=== PATIENT | male | born 1945 | race Caucasian/White ===

== ENCOUNTER → 2023-06-19 09:45 | Outpatient (REF) | payer MEDICARE, OTHER, SELFPAY ==
[2023-06-19 11:08] LABS: % Basophils 1.3 % (0-2); % Eosinophils 2.2 % (0-6); % Immature Granulocytes 0.3 % (0-0.5); % Lymphocytes 18.2 % (20.5-51.1); % Monocytes 11.7 % (1.7-9.3); % Neutrophils 66.3 % (42.2-75.2); Absolute Basophils 0.1 10^3/uL (0-0.2); Absolute Eosinophils 0.2 10^3/uL (0-0.7); Absolute Lymphocytes 1.3 10^3/uL (1.2-3.4); Absolute Monocytes 0.8 10^3/uL (0.1-0.6); Absolute Neutrophils 4.7 10^3/uL (1.4-6.5); Hematocrit 39.7 % (39.0-52.0); Hemoglobin 13.1 g/dL (13.0-18.0); Mean Corpuscular Hgb 27.2 pg (27.0-31.0); Mean Corpuscular Volume 82.5 fL (80.0-94.0); Mean Platelet Volume 11.3 fL (7.4-10.4); Nucleated Red Blood Cells % 0 % (-); Platelet Count 169 10^3/uL (130-400); Red Blood Cell Count 4.81 10^6/uL (4.70-6.10); Red Cell Dist. Width 13.9 % (11.5-14.5); White Blood Cell Count 7.2 10^3/uL (4.8-10.8)
[2023-06-19 11:49] LABS: ALT (SGPT) 27 U/L (0-50); AST (SGOT) 23 U/L (17-59); Albumin 4.1 g/dl (3.5-5.0); Alkaline Phosphatase 89 U/L (38-126); Blood Urea Nitrogen 19 mg/dl (9-20); Calcium 9.3 mg/dl (8.4-10.2); Carbon Dioxide 28 mmol/L (22-30); Chloride 102 mmol/L (98-107); Glucose 99 mg/dl (70-99); Potassium 4.6 mmol/L (3.5-5.1); Sodium 139 mmol/L (135-145); Total Bilirubin 0.9 mg/dl (0.2-1.3); Total Protein 6.3 g/dl (6.3-8.2); eGFR > 60.00
[2023-06-19 12:27] LABS: TSH Reflex To Free T4 1.88 uIU/ml (0.47-4.68)
== END ==
LOC: REG 09:45
PROVIDERS: ATTENDING PHYSICIAN Internal Medicine Hematology & Oncology
DX: C34.31 Malignant neoplasm of lower lobe, right bronchus or lung (principal); C79.51 Secondary malignant neoplasm of bone; C79.31 Secondary malignant neoplasm of brain; R71.8 Other abnormality of red blood cells; R53.82 Chronic fatigue, unspecified
CPT/HCPCS: 36415; 80053; 84443; 85025

== ENCOUNTER → 2023-06-23 07:09 | Outpatient (REF) | payer MEDICARE, OTHER, SELFPAY | LOC: RAD 07:09 | PROVIDERS: ATTENDING PHYSICIAN Specialist; FAMILY PHYSICIAN Family Medicine | DX: I73.9 Peripheral vascular disease, unspecified (principal); I77.9 Disorder of arteries and arterioles, unspecified | CPT/HCPCS: 93922; 93925 ==

== ENCOUNTER → 2023-07-24 09:47 | Outpatient (REF) | payer MEDICARE, OTHER, SELFPAY | LOC: MRI 3T 09:47 | PROVIDERS: ATTENDING PHYSICIAN Radiology Radiation Oncology; FAMILY PHYSICIAN Family Medicine | DX: C34.90 Malignant neoplasm of unspecified part of unspecified bronchus or lung (principal); C79.31 Secondary malignant neoplasm of brain | CPT/HCPCS: 70553; A9575 ==

== ENCOUNTER → 2023-07-31 09:24 | Outpatient (REF) | payer MEDICARE, OTHER, SELFPAY ==
[2023-07-31 10:07] LABS: % Basophils 0.7 % (0-2); % Eosinophils 1.8 % (0-6); % Immature Granulocytes 0.4 % (0-0.5); % Lymphocytes 18.1 % (20.5-51.1); % Monocytes 9.8 % (1.7-9.3); % Neutrophils 69.2 % (42.2-75.2); Absolute Basophils 0.1 10^3/uL (0-0.2); Absolute Eosinophils 0.1 10^3/uL (0-0.7); Absolute Lymphocytes 1.3 10^3/uL (1.2-3.4); Absolute Monocytes 0.7 10^3/uL (0.1-0.6); Hematocrit 37.7 % (39.0-52.0); Hemoglobin 11.8 g/dL (13.0-18.0); Mean Corp Hgb Conc. 31.3 g/dL (33.0-37.0); Mean Corpuscular Hgb 26.1 pg (27.0-31.0); Mean Corpuscular Volume 83.4 fL (80.0-94.0); Mean Platelet Volume 10.2 fL (7.4-10.4); Nucleated Red Blood Cells % 0 % (-); Platelet Count 184 10^3/uL (130-400); Red Blood Cell Count 4.52 10^6/uL (4.70-6.10); Red Cell Dist. Width 13.2 % (11.5-14.5); White Blood Cell Count 7.2 10^3/uL (4.8-10.8)
[2023-07-31 10:39] LABS: ALT (SGPT) 13 U/L (0-50); AST (SGOT) 16 U/L (17-59); Albumin 3.3 g/dl (3.5-5.0); Alkaline Phosphatase 101 U/L (38-126); Blood Urea Nitrogen 15 mg/dl (9-20); Calcium 9.3 mg/dl (8.4-10.2); Carbon Dioxide 28 mmol/L (22-30); Chloride 104 mmol/L (98-107); Glucose 126 mg/dl (70-99); Potassium 4.4 mmol/L (3.5-5.1); Sodium 136 mmol/L (135-145); Total Bilirubin 0.4 mg/dl (0.2-1.3); Total Protein 5.8 g/dl (6.3-8.2); eGFR > 60.00
[2023-07-31 11:09] LABS: TSH Reflex To Free T4 2.37 uIU/ml (0.47-4.68)
== END ==
LOC: REG 09:24
PROVIDERS: ATTENDING PHYSICIAN Internal Medicine Hematology & Oncology
DX: C34.31 Malignant neoplasm of lower lobe, right bronchus or lung (principal); C79.51 Secondary malignant neoplasm of bone; C79.31 Secondary malignant neoplasm of brain; R71.8 Other abnormality of red blood cells; R53.82 Chronic fatigue, unspecified
CPT/HCPCS: 36415; 80053; 84443; 85025

== ENCOUNTER → 2023-09-04 09:59 | Outpatient (REF) | payer MEDICARE, OTHER, SELFPAY | LOC: RCS 09:59 | PROVIDERS: ATTENDING PHYSICIAN Pain Medicine Interventional Pain Medicine; FAMILY PHYSICIAN Family Medicine | DX: Z01.818 Encounter for other preprocedural examination (principal) | CPT/HCPCS: 93005 ==

== ENCOUNTER → 2023-09-12 09:45 | Outpatient (REF) | payer MEDICARE, OTHER, SELFPAY ==
[2023-09-12 12:26] LABS: % Basophils 0.8 % (0-2); % Eosinophils 1.9 % (0-6); % Immature Granulocytes 0.8 % (0-0.5); % Lymphocytes 16.8 % (20.5-51.1); % Monocytes 12.1 % (1.7-9.3); % Neutrophils 67.6 % (42.2-75.2); Absolute Basophils 0.1 10^3/uL (0-0.2); Absolute Eosinophils 0.2 10^3/uL (0-0.7); Absolute Immature Granulocytes 0.1 10^3/uL (0-0.05); Absolute Lymphocytes 1.3 10^3/uL (1.2-3.4); Absolute Neutrophils 5.3 10^3/uL (1.4-6.5); Hematocrit 36.8 % (39.0-52.0); Hemoglobin 11.5 g/dL (13.0-18.0); Mean Corp Hgb Conc. 31.3 g/dL (33.0-37.0); Mean Corpuscular Hgb 25.5 pg (27.0-31.0); Mean Corpuscular Volume 81.6 fL (80.0-94.0); Mean Platelet Volume 11.2 fL (7.4-10.4); Nucleated Red Blood Cells % 0 % (-); Platelet Count 193 10^3/uL (130-400); Red Blood Cell Count 4.51 10^6/uL (4.70-6.10); Red Cell Dist. Width 13.8 % (11.5-14.5); White Blood Cell Count 7.9 10^3/uL (4.8-10.8)
[2023-09-12 13:38] LABS: ALT (SGPT) 58 U/L (0-50); AST (SGOT) 30 U/L (17-59); Albumin 3.8 g/dl (3.5-5.0); Alkaline Phosphatase 125 U/L (38-126); Blood Urea Nitrogen 16 mg/dl (9-20); Calcium 9.6 mg/dl (8.4-10.2); Carbon Dioxide 27 mmol/L (22-30); Chloride 104 mmol/L (98-107); Glucose 81 mg/dl (70-99); Potassium 4.5 mmol/L (3.5-5.1); Sodium 140 mmol/L (135-145); Total Bilirubin 0.5 mg/dl (0.2-1.3); Total Protein 6.4 g/dl (6.3-8.2); eGFR > 60.00
[2023-09-12 14:09] LABS: TSH Reflex To Free T4 1.86 uIU/ml (0.47-4.68)
== END ==
LOC: REG 09:45
PROVIDERS: ATTENDING PHYSICIAN Internal Medicine Hematology & Oncology; FAMILY PHYSICIAN Family Medicine
DX: C34.31 Malignant neoplasm of lower lobe, right bronchus or lung (principal); C79.51 Secondary malignant neoplasm of bone; C79.31 Secondary malignant neoplasm of brain; R71.8 Other abnormality of red blood cells; R53.82 Chronic fatigue, unspecified
CPT/HCPCS: 36415; 80053; 84443; 85025

== ENCOUNTER → 2023-10-23 09:43 | Outpatient (REF) | payer MEDICARE, OTHER, SELFPAY ==
[2023-10-23 11:40] LABS: % Basophils 0.7 % (0-2); % Eosinophils 2.2 % (0-6); % Immature Granulocytes 0.4 % (0-0.5); % Lymphocytes 13.3 % (20.5-51.1); % Monocytes 13.5 % (1.7-9.3); % Neutrophils 69.9 % (42.2-75.2); Absolute Basophils 0.1 10^3/uL (0-0.2); Absolute Eosinophils 0.2 10^3/uL (0-0.7); Absolute Neutrophils 5.1 10^3/uL (1.4-6.5); Hematocrit 35.3 % (39.0-52.0); Hemoglobin 11.3 g/dL (13.0-18.0); Mean Corpuscular Hgb 25.3 pg (27.0-31.0); Mean Platelet Volume 10.7 fL (7.4-10.4); Nucleated Red Blood Cells % 0 % (-); Platelet Count 213 10^3/uL (130-400); Red Blood Cell Count 4.47 10^6/uL (4.70-6.10); Red Cell Dist. Width 14.2 % (11.5-14.5); White Blood Cell Count 7.4 10^3/uL (4.8-10.8)
[2023-10-23 12:04] LABS: ALT (SGPT) 28 U/L (0-50); AST (SGOT) 21 U/L (17-59); Albumin 3.6 g/dl (3.5-5.0); Alkaline Phosphatase 120 U/L (38-126); Blood Urea Nitrogen 17 mg/dl (9-20); Calcium 9.1 mg/dl (8.4-10.2); Carbon Dioxide 27 mmol/L (22-30); Chloride 103 mmol/L (98-107); Glucose 117 mg/dl (70-99); Potassium 4.5 mmol/L (3.5-5.1); Sodium 138 mmol/L (135-145); Total Bilirubin 0.5 mg/dl (0.2-1.3); eGFR > 60.00
[2023-10-23 12:35] LABS: TSH Reflex To Free T4 1.77 uIU/ml (0.47-4.68)
== END ==
LOC: REG 09:43
PROVIDERS: ATTENDING PHYSICIAN Internal Medicine Hematology & Oncology
DX: C34.31 Malignant neoplasm of lower lobe, right bronchus or lung (principal); C79.51 Secondary malignant neoplasm of bone; C79.31 Secondary malignant neoplasm of brain; R71.8 Other abnormality of red blood cells; R53.82 Chronic fatigue, unspecified
CPT/HCPCS: 36415; 80053; 84443; 85025

== ENCOUNTER → 2023-12-04 09:38 | Outpatient (REF) | payer MEDICARE, OTHER, SELFPAY ==
[2023-12-04 10:42] LABS: % Eosinophils 2.9 % (0-6); % Immature Granulocytes 0.6 % (0-0.5); % Lymphocytes 13.2 % (20.5-51.1); % Monocytes 13.1 % (1.7-9.3); % Neutrophils 69.2 % (42.2-75.2); Absolute Basophils 0.1 10^3/uL (0-0.2); Absolute Eosinophils 0.3 10^3/uL (0-0.7); Absolute Immature Granulocytes 0.1 10^3/uL (0-0.05); Absolute Lymphocytes 1.2 10^3/uL (1.2-3.4); Absolute Monocytes 1.2 10^3/uL (0.1-0.6); Absolute Neutrophils 6.2 10^3/uL (1.4-6.5); Hematocrit 35.7 % (39.0-52.0); Hemoglobin 11.7 g/dL (13.0-18.0); Mean Corp Hgb Conc. 32.8 g/dL (33.0-37.0); Mean Corpuscular Hgb 25.6 pg (27.0-31.0); Mean Corpuscular Volume 78.1 fL (80.0-94.0); Mean Platelet Volume 10.4 fL (7.4-10.4); Nucleated Red Blood Cells % 0 % (-); Platelet Count 208 10^3/uL (130-400); Red Blood Cell Count 4.57 10^6/uL (4.70-6.10); White Blood Cell Count 8.9 10^3/uL (4.8-10.8)
[2023-12-04 11:32] LABS: ALT (SGPT) 28 U/L (0-50); AST (SGOT) 24 U/L (17-59); Albumin 3.7 g/dl (3.5-5.0); Alkaline Phosphatase 123 U/L (38-126); Blood Urea Nitrogen 18 mg/dl (9-20); Calcium 9.4 mg/dl (8.4-10.2); Carbon Dioxide 25 mmol/L (22-30); Chloride 101 mmol/L (98-107); Glucose 119 mg/dl (70-99); Potassium 4.3 mmol/L (3.5-5.1); Sodium 134 mmol/L (135-145); Total Bilirubin 0.5 mg/dl (0.2-1.3); eGFR > 60.00
[2023-12-04 11:39] LABS: TSH Reflex To Free T4 1.92 uIU/ml (0.47-4.68)
== END ==
LOC: REG 09:38
PROVIDERS: ATTENDING PHYSICIAN Internal Medicine Hematology & Oncology; FAMILY PHYSICIAN Family Medicine
DX: C34.31 Malignant neoplasm of lower lobe, right bronchus or lung (principal); C79.51 Secondary malignant neoplasm of bone; C79.31 Secondary malignant neoplasm of brain; R71.8 Other abnormality of red blood cells; R53.82 Chronic fatigue, unspecified
CPT/HCPCS: 36415; 80053; 84443; 85025

== ENCOUNTER → 2024-01-09 18:34 | Outpatient (REF) | payer MEDICARE, OTHER, SELFPAY | LOC: MRI 3T 18:34 | PROVIDERS: ATTENDING PHYSICIAN Internal Medicine Hematology & Oncology; FAMILY PHYSICIAN Family Medicine; REFERRING PHYSICIAN Pain Medicine Interventional Pain Medicine | DX: C34.31 Malignant neoplasm of lower lobe, right bronchus or lung (principal); C79.51 Secondary malignant neoplasm of bone; C79.31 Secondary malignant neoplasm of brain; R71.8 Other abnormality of red blood cells; R53.82 Chronic fatigue, unspecified | CPT/HCPCS: 72158; A9575 ==

== ENCOUNTER → 2024-01-12 08:52 | Outpatient (REF) | payer MEDICARE, OTHER, SELFPAY ==
[2024-01-12 09:20] LABS: % Basophils 0.5 % (0-2); % Eosinophils 2.1 % (0-6); % Immature Granulocytes 0.4 % (0-0.5); % Lymphocytes 18.2 % (20.5-51.1); % Monocytes 16.4 % (1.7-9.3); % Neutrophils 62.4 % (42.2-75.2); Absolute Eosinophils 0.1 10^3/uL (0-0.7); Absolute Monocytes 0.9 10^3/uL (0.1-0.6); Absolute Neutrophils 3.5 10^3/uL (1.4-6.5); Hemoglobin 10.5 g/dL (13.0-18.0); Mean Corp Hgb Conc. 31.8 g/dL (33.0-37.0); Mean Corpuscular Hgb 25.4 pg (27.0-31.0); Mean Corpuscular Volume 79.7 fL (80.0-94.0); Mean Platelet Volume 9.9 fL (7.4-10.4); Nucleated Red Blood Cells % 0 % (-); Platelet Count 223 10^3/uL (130-400); Red Blood Cell Count 4.14 10^6/uL (4.70-6.10); White Blood Cell Count 5.6 10^3/uL (4.8-10.8)
[2024-01-12 09:38] LABS: Erythrocyte Sed Rate 56 mm/hour (0-20)
[2024-01-12 09:51] LABS: ALT (SGPT) 35 U/L (0-50); AST (SGOT) 25 U/L (17-59); Albumin 3.6 g/dl (3.5-5.0); Alkaline Phosphatase 137 U/L (38-126); Blood Urea Nitrogen 16 mg/dl (9-20); Calcium 9.3 mg/dl (8.4-10.2); Carbon Dioxide 24 mmol/L (22-30); Chloride 102 mmol/L (98-107); Glucose 134 mg/dl (70-99); Potassium 3.9 mmol/L (3.5-5.1); Sodium 141 mmol/L (135-145); Total Bilirubin 0.5 mg/dl (0.2-1.3); Total Protein 6.1 g/dl (6.3-8.2); eGFR > 60.00
[2024-01-12 10:18] LABS: TSH Reflex To Free T4 1.68 uIU/ml (0.47-4.68)
== END ==
LOC: REG 08:52
PROVIDERS: ATTENDING PHYSICIAN Internal Medicine Hematology & Oncology; FAMILY PHYSICIAN Family Medicine; REFERRING PHYSICIAN Physician Assistant
DX: M25.50 Pain in unspecified joint (principal); M35.3 Polymyalgia rheumatica; M79.10 Myalgia, unspecified site; C34.31 Malignant neoplasm of lower lobe, right bronchus or lung; C79.51 Secondary malignant neoplasm of bone; C79.31 Secondary malignant neoplasm of brain; R71.8 Other abnormality of red blood cells; R53.82 Chronic fatigue, unspecified
CPT/HCPCS: 36415; 80053; 84443; 85025; 85652; 86140

== ENCOUNTER → 2024-01-30 08:48 | Outpatient (REF) | payer MEDICARE, OTHER, SELFPAY | LOC: MRI 3T 08:48 | PROVIDERS: ATTENDING PHYSICIAN Radiology Radiation Oncology; FAMILY PHYSICIAN Family Medicine | DX: C34.90 Malignant neoplasm of unspecified part of unspecified bronchus or lung (principal) | CPT/HCPCS: 70553 ==

== ENCOUNTER → 2024-02-26 09:37 | Outpatient (REF) | payer MEDICARE, OTHER, SELFPAY ==
[2024-02-26 10:12] LABS: % Basophils 0.4 % (0-2); % Eosinophils 0.7 % (0-6); % Immature Granulocytes 1.4 % (0-0.5); % Lymphocytes 14.9 % (20.5-51.1); % Monocytes 8.9 % (1.7-9.3); % Neutrophils 73.7 % (42.2-75.2); Absolute Eosinophils 0.1 10^3/uL (0-0.7); Absolute Immature Granulocytes 0.2 10^3/uL (0-0.05); Absolute Lymphocytes 1.6 10^3/uL (1.2-3.4); Absolute Neutrophils 7.9 10^3/uL (1.4-6.5); Hematocrit 41.5 % (39.0-52.0); Mean Corp Hgb Conc. 31.3 g/dL (33.0-37.0); Mean Corpuscular Hgb 26.1 pg (27.0-31.0); Mean Corpuscular Volume 83.3 fL (80.0-94.0); Mean Platelet Volume 10.3 fL (7.4-10.4); Nucleated Red Blood Cells % 0 % (-); Platelet Count 154 10^3/uL (130-400); Red Blood Cell Count 4.98 10^6/uL (4.70-6.10); Red Cell Dist. Width 17.2 % (11.5-14.5); White Blood Cell Count 10.8 10^3/uL (4.8-10.8)
[2024-02-26 10:47] LABS: ALT (SGPT) 65 U/L (0-50); AST (SGOT) 27 U/L (17-59); Albumin 3.7 g/dl (3.5-5.0); Alkaline Phosphatase 74 U/L (38-126); Blood Urea Nitrogen 20 mg/dl (9-20); Calcium 9.6 mg/dl (8.4-10.2); Carbon Dioxide 28 mmol/L (22-30); Chloride 103 mmol/L (98-107); Glucose 89 mg/dl (70-99); Potassium 4.3 mmol/L (3.5-5.1); Sodium 139 mmol/L (135-145); Total Bilirubin 0.6 mg/dl (0.2-1.3); eGFR > 60.00
[2024-02-26 11:06] LABS: TSH Reflex To Free T4 1.97 uIU/ml (0.47-4.68)
== END ==
LOC: REG 09:37
PROVIDERS: ATTENDING PHYSICIAN Internal Medicine Hematology & Oncology; FAMILY PHYSICIAN Family Medicine
DX: C34.31 Malignant neoplasm of lower lobe, right bronchus or lung (principal); C79.51 Secondary malignant neoplasm of bone; C79.31 Secondary malignant neoplasm of brain; R71.8 Other abnormality of red blood cells; R53.82 Chronic fatigue, unspecified
CPT/HCPCS: 36415; 80053; 84443; 85025

== ENCOUNTER → 2024-04-03 09:43 | Outpatient (REF) | payer MEDICARE, OTHER, SELFPAY ==
[2024-04-03 10:23] LABS: Erythrocyte Sed Rate 7 mm/hour (0-20)
[2024-04-03 10:44] LABS: C-Reactive Protein < 5.00 mg/L (0.0-10.00)
== END ==
LOC: REG 09:43
PROVIDERS: ATTENDING PHYSICIAN Internal Medicine Rheumatology; FAMILY PHYSICIAN Family Medicine
DX: M35.3 Polymyalgia rheumatica (principal)
CPT/HCPCS: 36415; 85652; 86140

== ENCOUNTER → 2024-04-23 09:45 | Outpatient (REF) | payer MEDICARE, OTHER, SELFPAY ==
[2024-04-23 11:29] LABS: % Basophils 0.7 % (0-2); % Eosinophils 1.2 % (0-6); % Immature Granulocytes 1.2 % (0-0.5); % Lymphocytes 17.7 % (20.5-51.1); % Monocytes 9.9 % (1.7-9.3); % Neutrophils 69.3 % (42.2-75.2); Absolute Basophils 0.1 10^3/uL (0-0.2); Absolute Eosinophils 0.1 10^3/uL (0-0.7); Absolute Immature Granulocytes 0.1 10^3/uL (0-0.05); Absolute Lymphocytes 1.8 10^3/uL (1.2-3.4); Absolute Neutrophils 7.2 10^3/uL (1.4-6.5); Hematocrit 43.7 % (39.0-52.0); Hemoglobin 14.3 g/dL (13.0-18.0); Mean Corp Hgb Conc. 32.7 g/dL (33.0-37.0); Mean Corpuscular Hgb 27.3 pg (27.0-31.0); Mean Corpuscular Volume 83.6 fL (80.0-94.0); Mean Platelet Volume 11.1 fL (7.4-10.4); Nucleated Red Blood Cells % 0 % (-); Platelet Count 154 10^3/uL (130-400); Red Blood Cell Count 5.23 10^6/uL (4.70-6.10); Red Cell Dist. Width 15.5 % (11.5-14.5); White Blood Cell Count 10.4 10^3/uL (4.8-10.8)
[2024-04-23 11:40] LABS: ALT (SGPT) 78 U/L (0-50); AST (SGOT) 28 U/L (17-59); Albumin 4.1 g/dl (3.5-5.0); Alkaline Phosphatase 83 U/L (38-126); Blood Urea Nitrogen 21 mg/dl (9-20); Calcium 9.2 mg/dl (8.4-10.2); Carbon Dioxide 31 mmol/L (22-30); Chloride 100 mmol/L (98-107); Glucose 81 mg/dl (70-99); Potassium 3.8 mmol/L (3.5-5.1); Sodium 139 mmol/L (135-145); Total Protein 6.3 g/dl (6.3-8.2); eGFR > 60.00
[2024-04-23 12:08] LABS: TSH Reflex To Free T4 2.34 uIU/ml (0.47-4.68)
== END ==
LOC: REG 09:45
PROVIDERS: ATTENDING PHYSICIAN Internal Medicine Hematology & Oncology; FAMILY PHYSICIAN Family Medicine
DX: C34.31 Malignant neoplasm of lower lobe, right bronchus or lung (principal); C79.51 Secondary malignant neoplasm of bone; C79.31 Secondary malignant neoplasm of brain; R71.8 Other abnormality of red blood cells; R53.82 Chronic fatigue, unspecified; M35.3 Polymyalgia rheumatica
CPT/HCPCS: 36415; 80053; 84443; 85025

== ENCOUNTER → 2024-05-13 07:30 | Outpatient (REF) | payer MEDICARE, OTHER, SELFPAY | LOC: MRI 3T 07:30 | PROVIDERS: ATTENDING PHYSICIAN Radiology Radiation Oncology; FAMILY PHYSICIAN Family Medicine; REFERRING PHYSICIAN Internal Medicine Hematology & Oncology | DX: C34.90 Malignant neoplasm of unspecified part of unspecified bronchus or lung (principal) | CPT/HCPCS: 70553; A9575 ==

== ENCOUNTER → 2024-05-20 10:05 | Outpatient (REF) | payer MEDICARE, OTHER, SELFPAY ==
[2024-05-20 10:30] VITALS: BP 151/73; BP_SYST 59
[2024-05-20] MEDS: ANCEF 10 IV (11:01)
[2024-05-20 11:55] VITALS: BP 135/58; BP_SYST 94
[2024-05-20 12:00] VITALS: BP 142/64; BP_SYST 87
== END ==
LOC: RADI 10:05
PROVIDERS: ATTENDING PHYSICIAN Internal Medicine Hematology & Oncology; FAMILY PHYSICIAN Family Medicine
DX: C34.31 Malignant neoplasm of lower lobe, right bronchus or lung (principal)
CPT/HCPCS: 36561; 76937; 77001; 99152; 99153; C1788

== ENCOUNTER → 2024-05-28 09:38 | Outpatient (REF) | payer MEDICARE, OTHER, SELFPAY ==
[2024-05-28 11:02] LABS: % Basophils 0.6 % (0-2); % Eosinophils 2.9 % (0-6); % Immature Granulocytes 1.1 % (0-0.5); % Lymphocytes 13.7 % (20.5-51.1); % Monocytes 10.7 % (1.7-9.3); Absolute Basophils 0.1 10^3/uL (0-0.2); Absolute Eosinophils 0.3 10^3/uL (0-0.7); Absolute Immature Granulocytes 0.1 10^3/uL (0-0.05); Absolute Lymphocytes 1.5 10^3/uL (1.2-3.4); Absolute Monocytes 1.2 10^3/uL (0.1-0.6); Absolute Neutrophils 7.9 10^3/uL (1.4-6.5); Hematocrit 41.7 % (39.0-52.0); Hemoglobin 13.5 g/dL (13.0-18.0); Mean Corp Hgb Conc. 32.4 g/dL (33.0-37.0); Mean Corpuscular Volume 86.5 fL (80.0-94.0); Mean Platelet Volume 10.7 fL (7.4-10.4); Nucleated Red Blood Cells % 0 % (-); Platelet Count 163 10^3/uL (130-400); Red Blood Cell Count 4.82 10^6/uL (4.70-6.10); Red Cell Dist. Width 14.1 % (11.5-14.5); White Blood Cell Count 11.1 10^3/uL (4.8-10.8)
[2024-05-28 11:56] LABS: ALT (SGPT) 100 U/L (0-50); AST (SGOT) 43 U/L (17-59); Albumin 3.7 g/dl (3.5-5.0); Alkaline Phosphatase 172 U/L (38-126); Blood Urea Nitrogen 24 mg/dl (9-20); Calcium 9.4 mg/dl (8.4-10.2); Carbon Dioxide 28 mmol/L (22-30); Chloride 102 mmol/L (98-107); Glucose 94 mg/dl (70-99); Potassium 4.5 mmol/L (3.5-5.1); Sodium 137 mmol/L (135-145); Total Protein 6.1 g/dl (6.3-8.2); eGFR > 60.00
[2024-05-28 12:16] LABS: TSH Reflex To Free T4 1.99 uIU/ml (0.47-4.68)
== END ==
LOC: REG 09:38
PROVIDERS: ATTENDING PHYSICIAN Internal Medicine Hematology & Oncology; FAMILY PHYSICIAN Family Medicine
DX: C34.31 Malignant neoplasm of lower lobe, right bronchus or lung (principal); C79.51 Secondary malignant neoplasm of bone; C79.31 Secondary malignant neoplasm of brain; R71.8 Other abnormality of red blood cells; R53.82 Chronic fatigue, unspecified; M35.3 Polymyalgia rheumatica
CPT/HCPCS: 36415; 80053; 84443; 85025

== ENCOUNTER → 2024-06-12 08:29 | Outpatient (REF) | payer MEDICARE, OTHER, SELFPAY ==
[2024-06-12 10:07] LABS: Erythrocyte Sed Rate 17 mm/hour (0-20)
== END ==
LOC: REG 08:29
PROVIDERS: ATTENDING PHYSICIAN Physician Assistant; FAMILY PHYSICIAN Family Medicine
DX: M35.3 Polymyalgia rheumatica (principal)
CPT/HCPCS: 36415; 85652; 86140

== ENCOUNTER → 2024-06-18 09:27 | Outpatient (REF) | payer MEDICARE, OTHER, SELFPAY ==
[2024-06-18 10:26] LABS: % Basophils 1.4 % (0-2); % Eosinophils 0.5 % (0-6); % Immature Granulocytes 2.1 % (0-0.5); % Lymphocytes 9.3 % (20.5-51.1); % Monocytes 8.6 % (1.7-9.3); % Neutrophils 78.1 % (42.2-75.2); Absolute Basophils 0.3 10^3/uL (0-0.2); Absolute Eosinophils 0.1 10^3/uL (0-0.7); Absolute Immature Granulocytes 0.4 10^3/uL (0-0.05); Absolute Lymphocytes 1.8 10^3/uL (1.2-3.4); Absolute Monocytes 1.7 10^3/uL (0.1-0.6); Absolute Neutrophils 15.4 10^3/uL (1.4-6.5); Hematocrit 40.2 % (39.0-52.0); Hemoglobin 13.3 g/dL (13.0-18.0); Mean Corp Hgb Conc. 33.1 g/dL (33.0-37.0); Mean Corpuscular Hgb 27.5 pg (27.0-31.0); Mean Corpuscular Volume 83.2 fL (80.0-94.0); Mean Platelet Volume 10.4 fL (7.4-10.4); Nucleated Red Blood Cells % 0 % (-); Platelet Count 241 10^3/uL (130-400); Red Blood Cell Count 4.83 10^6/uL (4.70-6.10); Red Cell Dist. Width 14.7 % (11.5-14.5); White Blood Cell Count 19.7 10^3/uL (4.8-10.8)
[2024-06-18 11:08] LABS: ALT (SGPT) 41 U/L (0-50); AST (SGOT) 22 U/L (17-59); Alkaline Phosphatase 213 U/L (38-126); Blood Urea Nitrogen 16 mg/dl (9-20); Calcium 9.7 mg/dl (8.4-10.2); Carbon Dioxide 31 mmol/L (22-30); Chloride 102 mmol/L (98-107); Glucose 86 mg/dl (70-99); Potassium 4.2 mmol/L (3.5-5.1); Sodium 140 mmol/L (135-145); Total Bilirubin 0.8 mg/dl (0.2-1.3); Total Protein 6.4 g/dl (6.3-8.2); eGFR > 60.00
[2024-06-18 11:35] LABS: TSH Reflex To Free T4 2.72 uIU/ml (0.47-4.68)
== END ==
LOC: REG 09:27
PROVIDERS: ATTENDING PHYSICIAN Internal Medicine Hematology & Oncology; FAMILY PHYSICIAN Family Medicine
DX: C34.31 Malignant neoplasm of lower lobe, right bronchus or lung (principal); C79.51 Secondary malignant neoplasm of bone; C79.31 Secondary malignant neoplasm of brain; R71.8 Other abnormality of red blood cells; R53.82 Chronic fatigue, unspecified; M35.3 Polymyalgia rheumatica
CPT/HCPCS: 36415; 80053; 84443; 85025

== ENCOUNTER → 2024-07-09 09:19 | Outpatient (REF) | payer MEDICARE, OTHER, SELFPAY ==
[2024-07-09 10:39] LABS: % Basophils 0.9 % (0-2); % Eosinophils 0.7 % (0-6); % Immature Granulocytes 1.9 % (0-0.5); % Monocytes 8.5 % (1.7-9.3); Absolute Basophils 0.1 10^3/uL (0-0.2); Absolute Eosinophils 0.1 10^3/uL (0-0.7); Absolute Immature Granulocytes 0.2 10^3/uL (0-0.05); Absolute Lymphocytes 1.5 10^3/uL (1.2-3.4); Absolute Neutrophils 8.5 10^3/uL (1.4-6.5); Hematocrit 37.1 % (39.0-52.0); Mean Corp Hgb Conc. 32.3 g/dL (33.0-37.0); Mean Corpuscular Hgb 27.8 pg (27.0-31.0); Mean Corpuscular Volume 85.9 fL (80.0-94.0); Mean Platelet Volume 11.2 fL (7.4-10.4); Nucleated Red Blood Cells % 0 % (-); Platelet Count 135 10^3/uL (130-400); Red Blood Cell Count 4.32 10^6/uL (4.70-6.10); Red Cell Dist. Width 15.8 % (11.5-14.5); White Blood Cell Count 11.3 10^3/uL (4.8-10.8)
[2024-07-09 10:47] LABS: ALT (SGPT) 33 U/L (0-50); AST (SGOT) 20 U/L (17-59); Albumin 3.9 g/dl (3.5-5.0); Alkaline Phosphatase 186 U/L (38-126); Blood Urea Nitrogen 17 mg/dl (9-20); Calcium 9.6 mg/dl (8.4-10.2); Carbon Dioxide 27 mmol/L (22-30); Chloride 108 mmol/L (98-107); Glucose 147 mg/dl (70-99); Potassium 3.8 mmol/L (3.5-5.1); Sodium 143 mmol/L (135-145); Total Bilirubin 0.5 mg/dl (0.2-1.3); eGFR > 60.00
== END ==
LOC: REG 09:19
PROVIDERS: ATTENDING PHYSICIAN Internal Medicine Hematology & Oncology; FAMILY PHYSICIAN Family Medicine
DX: C34.31 Malignant neoplasm of lower lobe, right bronchus or lung (principal); C79.51 Secondary malignant neoplasm of bone; C79.31 Secondary malignant neoplasm of brain; R71.8 Other abnormality of red blood cells; R53.82 Chronic fatigue, unspecified; M35.3 Polymyalgia rheumatica
CPT/HCPCS: 36415; 80053; 85025

== ENCOUNTER → 2024-07-20 08:24 | Outpatient (REF) | payer MEDICARE, OTHER, SELFPAY ==
[2024-07-20 09:24] LABS: Urine Albumin Negative (Neg - Trace); Urine Bilirubin Negative (Negative); Urine Character Clear (Clear); Urine Color Yellow; Urine Glucose Negative (Negative); Urine Ketone Negative (Negative); Urine Leukocyte 1+ (Negative); Urine Nitrite Negative (Negative); Urine Occult Blood Negative (Negative); Urine Urobilinogen Negative (Neg - 1+); Urine pH 6.5 (5.0-9.0)
[2024-07-20 09:25] LABS: Hemoglobin 11.4 g/dL (13.0-18.0); Mean Corp Hgb Conc. 32.6 g/dL (33.0-37.0); Mean Corpuscular Hgb 27.9 pg (27.0-31.0); Mean Corpuscular Volume 85.6 fL (80.0-94.0); Mean Platelet Volume 11.2 fL (7.4-10.4); Platelet Count 138 10^3/uL (130-400); Red Blood Cell Count 4.09 10^6/uL (4.70-6.10); Red Cell Dist. Width 15.2 % (11.5-14.5)
[2024-07-20 09:40] LABS: ALT (SGPT) 40 U/L (0-50); AST (SGOT) 24 U/L (17-59); Albumin 3.6 g/dl (3.5-5.0); Alkaline Phosphatase 207 U/L (38-126); Blood Urea Nitrogen 10 mg/dl (9-20); Calcium 9.4 mg/dl (8.4-10.2); Carbon Dioxide 28 mmol/L (22-30); Chloride 107 mmol/L (98-107); Glucose 119 mg/dl (70-99); Potassium 3.5 mmol/L (3.5-5.1); Sodium 141 mmol/L (135-145); Total Bilirubin 0.4 mg/dl (0.2-1.3); Total Protein 5.7 g/dl (6.3-8.2); eGFR > 60.00
[2024-07-20 10:45] LABS: Urine Bacteria Few (Negative)
[2024-07-20 13:54] LABS: % Basophils 0.5 % (0-2); % Eosinophils 1.6 % (0-6); % Immature Granulocytes 2.3 % (0-0.5); % Lymphocytes 17.6 % (20.5-51.1); % Monocytes 11.7 % (1.7-9.3); % Neutrophils 66.3 % (42.2-75.2); Absolute Basophils 0.1 10^3/uL (0-0.2); Absolute Eosinophils 0.2 10^3/uL (0-0.7); Absolute Immature Granulocytes 0.3 10^3/uL (0-0.05); Absolute Lymphocytes 1.9 10^3/uL (1.2-3.4); Absolute Monocytes 1.3 10^3/uL (0.1-0.6); Absolute Neutrophils 7.3 10^3/uL (1.4-6.5); Nucleated Red Blood Cells % 0 % (-)
== END ==
LOC: REG 08:24
PROVIDERS: ATTENDING PHYSICIAN Internal Medicine Hematology & Oncology; FAMILY PHYSICIAN Family Medicine
DX: C34.31 Malignant neoplasm of lower lobe, right bronchus or lung (principal); C79.51 Secondary malignant neoplasm of bone; R71.8 Other abnormality of red blood cells; R53.82 Chronic fatigue, unspecified; M35.3 Polymyalgia rheumatica; N39.0 Urinary tract infection, site not specified
CPT/HCPCS: 36415; 80053; 81003; 81015; 85025; 87086

== ENCOUNTER → 2024-07-30 07:55 | Outpatient (REF) | payer MEDICARE, OTHER, SELFPAY ==
[2024-07-30 08:59] LABS: % Basophils 1.3 % (0-2); % Eosinophils 0.7 % (0-6); % Immature Granulocytes 0.7 % (0-0.5); % Lymphocytes 17.5 % (20.5-51.1); % Monocytes 10.8 % (1.7-9.3); Absolute Basophils 0.1 10^3/uL (0-0.2); Absolute Eosinophils 0.1 10^3/uL (0-0.7); Absolute Immature Granulocytes 0.1 10^3/uL (0-0.05); Absolute Lymphocytes 1.5 10^3/uL (1.2-3.4); Absolute Monocytes 0.9 10^3/uL (0.1-0.6); Absolute Neutrophils 5.8 10^3/uL (1.4-6.5); Hematocrit 36.6 % (39.0-52.0); Hemoglobin 11.9 g/dL (13.0-18.0); Mean Corp Hgb Conc. 32.5 g/dL (33.0-37.0); Mean Corpuscular Hgb 28.1 pg (27.0-31.0); Mean Corpuscular Volume 86.3 fL (80.0-94.0); Mean Platelet Volume 10.5 fL (7.4-10.4); Nucleated Red Blood Cells % 0 % (-); Platelet Count 143 10^3/uL (130-400); Red Blood Cell Count 4.24 10^6/uL (4.70-6.10); Red Cell Dist. Width 16.3 % (11.5-14.5); White Blood Cell Count 8.4 10^3/uL (4.8-10.8)
[2024-07-30 10:24] LABS: ALT (SGPT) 36 U/L (0-50); AST (SGOT) 25 U/L (17-59); Albumin 3.9 g/dl (3.5-5.0); Alkaline Phosphatase 166 U/L (38-126); Blood Urea Nitrogen 19 mg/dl (9-20); Calcium 9.2 mg/dl (8.4-10.2); Carbon Dioxide 25 mmol/L (22-30); Chloride 107 mmol/L (98-107); Glucose 86 mg/dl (70-99); HDL Cholesterol 47 mg/dl; LDL Cholesterol, Calculated 81 mg/dl; Sodium 142 mmol/L (135-145); Total Bilirubin 0.6 mg/dl (0.2-1.3); Total Cholesterol 163 mg/dl (50-199); Total Protein 5.9 g/dl (6.3-8.2); Triglyceride 178 mg/dl (10-149); Very Low Density Lipoprotein 35 mg/dl (0-30); eGFR > 60.00
== END ==
LOC: REG 07:55
PROVIDERS: ATTENDING PHYSICIAN Internal Medicine Hematology & Oncology; FAMILY PHYSICIAN Family Medicine
DX: C34.31 Malignant neoplasm of lower lobe, right bronchus or lung (principal); C79.51 Secondary malignant neoplasm of bone; C79.31 Secondary malignant neoplasm of brain; R71.8 Other abnormality of red blood cells; R53.82 Chronic fatigue, unspecified; M35.3 Polymyalgia rheumatica; E78.2 Mixed hyperlipidemia
CPT/HCPCS: 36415; 80053; 80061; 85025

== ENCOUNTER → 2024-08-20 08:52 | Outpatient (REF) | payer MEDICARE, OTHER, SELFPAY ==
[2024-08-20 09:36] LABS: % Basophils 0.8 % (0-2); % Eosinophils 0.8 % (0-6); % Immature Granulocytes 0.7 % (0-0.5); % Lymphocytes 15.1 % (20.5-51.1); % Monocytes 9.7 % (1.7-9.3); % Neutrophils 72.9 % (42.2-75.2); Absolute Basophils 0.1 10^3/uL (0-0.2); Absolute Eosinophils 0.1 10^3/uL (0-0.7); Absolute Immature Granulocytes 0.1 10^3/uL (0-0.05); Absolute Lymphocytes 1.4 10^3/uL (1.2-3.4); Absolute Monocytes 0.9 10^3/uL (0.1-0.6); Hematocrit 34.7 % (39.0-52.0); Hemoglobin 11.2 g/dL (13.0-18.0); Mean Corp Hgb Conc. 32.3 g/dL (33.0-37.0); Mean Corpuscular Hgb 28.4 pg (27.0-31.0); Mean Corpuscular Volume 88.1 fL (80.0-94.0); Mean Platelet Volume 10.7 fL (7.4-10.4); Nucleated Red Blood Cells % 0 % (-); Platelet Count 115 10^3/uL (130-400); Red Blood Cell Count 3.94 10^6/uL (4.70-6.10); Red Cell Dist. Width 15.9 % (11.5-14.5); White Blood Cell Count 9.6 10^3/uL (4.8-10.8)
[2024-08-20 10:08] LABS: ALT (SGPT) 35 U/L (0-50); AST (SGOT) 17 U/L (17-59); Albumin 3.4 g/dl (3.5-5.0); Alkaline Phosphatase 124 U/L (38-126); Blood Urea Nitrogen 22 mg/dl (9-20); Calcium 9.3 mg/dl (8.4-10.2); Carbon Dioxide 28 mmol/L (22-30); Chloride 108 mmol/L (98-107); Glucose 126 mg/dl (70-99); Potassium 3.7 mmol/L (3.5-5.1); Sodium 141 mmol/L (135-145); Total Bilirubin 0.4 mg/dl (0.2-1.3); Total Protein 5.5 g/dl (6.3-8.2); eGFR > 60.00
== END ==
LOC: REG 08:52
PROVIDERS: ATTENDING PHYSICIAN Internal Medicine Hematology & Oncology; FAMILY PHYSICIAN Family Medicine
DX: C34.31 Malignant neoplasm of lower lobe, right bronchus or lung (principal); C79.51 Secondary malignant neoplasm of bone; C79.31 Secondary malignant neoplasm of brain; R71.8 Other abnormality of red blood cells; R53.82 Chronic fatigue, unspecified; M35.3 Polymyalgia rheumatica
CPT/HCPCS: 36415; 80053; 85025

== ENCOUNTER → 2024-09-03 10:48 | Outpatient (REF) | payer MEDICARE, OTHER, SELFPAY | LOC: PAVMRI 10:48 | PROVIDERS: ATTENDING PHYSICIAN Radiology Radiation Oncology; FAMILY PHYSICIAN Family Medicine | DX: C79.31 Secondary malignant neoplasm of brain (principal) | CPT/HCPCS: 70553; A9575 ==

== ENCOUNTER → 2024-09-10 09:35 | Outpatient (REF) | payer MEDICARE, OTHER, SELFPAY ==
[2024-09-10 10:25] LABS: % Basophils 0.6 % (0-2); % Eosinophils 0.4 % (0-6); % Immature Granulocytes 0.5 % (0-0.5); % Lymphocytes 15.1 % (20.5-51.1); % Monocytes 10.5 % (1.7-9.3); % Neutrophils 72.9 % (42.2-75.2); Absolute Basophils 0.1 10^3/uL (0-0.2); Absolute Immature Granulocytes 0.1 10^3/uL (0-0.05); Absolute Lymphocytes 1.5 10^3/uL (1.2-3.4); Absolute Monocytes 1.1 10^3/uL (0.1-0.6); Absolute Neutrophils 7.4 10^3/uL (1.4-6.5); Hematocrit 37.7 % (39.0-52.0); Hemoglobin 12.2 g/dL (13.0-18.0); Mean Corp Hgb Conc. 32.4 g/dL (33.0-37.0); Mean Corpuscular Hgb 28.4 pg (27.0-31.0); Mean Corpuscular Volume 87.7 fL (80.0-94.0); Mean Platelet Volume 10.5 fL (7.4-10.4); Nucleated Red Blood Cells % 0 % (-); Platelet Count 117 10^3/uL (130-400); White Blood Cell Count 10.2 10^3/uL (4.8-10.8)
[2024-09-10 11:06] LABS: ALT (SGPT) 27 U/L (0-50); AST (SGOT) 18 U/L (17-59); Alkaline Phosphatase 125 U/L (38-126); Blood Urea Nitrogen 16 mg/dl (9-20); Calcium 9.3 mg/dl (8.4-10.2); Carbon Dioxide 28 mmol/L (22-30); Chloride 110 mmol/L (98-107); Glucose 84 mg/dl (70-99); Potassium 3.7 mmol/L (3.5-5.1); Sodium 143 mmol/L (135-145); Total Bilirubin 0.5 mg/dl (0.2-1.3); Total Protein 6.1 g/dl (6.3-8.2); eGFR > 60.00
[2024-09-10 11:27] LABS: C-Reactive Protein < 5.00 mg/L (0.0-10.00)
[2024-09-10 12:17] LABS: Erythrocyte Sed Rate 13 mm/hour (0-20)
== END ==
LOC: REG 09:35
PROVIDERS: ATTENDING PHYSICIAN Internal Medicine Hematology & Oncology; OTHER PHYSICIAN Internal Medicine Rheumatology
DX: C34.31 Malignant neoplasm of lower lobe, right bronchus or lung (principal); C79.51 Secondary malignant neoplasm of bone; R71.8 Other abnormality of red blood cells; R53.82 Chronic fatigue, unspecified; M35.3 Polymyalgia rheumatica
CPT/HCPCS: 36415; 80053; 85025; 85652; 86140

== ENCOUNTER → 2024-10-22 08:29 | Outpatient (REF) | payer MEDICARE, OTHER, SELFPAY ==
[2024-10-22 09:20] LABS: Hematocrit 39.5 % (39.0-52.0); Hemoglobin 12.6 g/dL (13.0-18.0); Mean Corp Hgb Conc. 31.9 g/dL (33.0-37.0); Mean Corpuscular Volume 87.2 fL (80.0-94.0); Nucleated Red Blood Cells % 0 % (-); Platelet Count 114 10^3/uL (130-400); Red Cell Dist. Width 13.5 % (11.5-14.5)
[2024-10-22 10:00] LABS: ALT (SGPT) 24 U/L (0-50); AST (SGOT) 18 U/L (17-59); Albumin 4.3 g/dl (3.5-5.0); Alkaline Phosphatase 89 U/L (38-126); Blood Urea Nitrogen 15 mg/dl (9-20); Calcium 9.5 mg/dl (8.4-10.2); Carbon Dioxide 25 mmol/L (22-30); Chloride 109 mmol/L (98-107); Glucose 96 mg/dl (70-99); Potassium 4.4 mmol/L (3.5-5.1); Sodium 141 mmol/L (135-145); Total Protein 6.5 g/dl (6.3-8.2); eGFR > 60.00
[2024-10-22 10:13] LABS: TSH 2.85 uIU/ml (0.47-4.68)
== END ==
LOC: REG 08:29
PROVIDERS: ATTENDING PHYSICIAN Internal Medicine Hematology & Oncology; FAMILY PHYSICIAN Family Medicine
DX: C34.31 Malignant neoplasm of lower lobe, right bronchus or lung (principal); C79.51 Secondary malignant neoplasm of bone; C79.31 Secondary malignant neoplasm of brain; R71.8 Other abnormality of red blood cells; R53.82 Chronic fatigue, unspecified; M35.3 Polymyalgia rheumatica
CPT/HCPCS: 36415; 80053; 84443; 85025

== ENCOUNTER → 2024-12-03 09:35 | Outpatient (REF) | payer MEDICARE, OTHER, SELFPAY ==
[2024-12-03 10:42] LABS: AST (SGOT) 23 U/L (17-59); Albumin 3.9 g/dl (3.5-5.0); Alkaline Phosphatase 70 U/L (38-126); Blood Urea Nitrogen 16 mg/dl (9-20); Calcium 9.5 mg/dl (8.4-10.2); Carbon Dioxide 27 mmol/L (22-30); Chloride 106 mmol/L (98-107); Glucose 92 mg/dl (70-99); Potassium 3.9 mmol/L (3.5-5.1); Sodium 140 mmol/L (135-145); Total Protein 6.1 g/dl (6.3-8.2); eGFR > 60.00
[2024-12-03 10:43] LABS: ALT (SGPT) 36 U/L (0-50)
== END ==
LOC: REG 09:35
PROVIDERS: ATTENDING PHYSICIAN Nurse Practitioner Primary Care; FAMILY PHYSICIAN Family Medicine; OTHER PHYSICIAN Internal Medicine Hematology & Oncology
DX: C34.31 Malignant neoplasm of lower lobe, right bronchus or lung (principal); C79.51 Secondary malignant neoplasm of bone; C79.31 Secondary malignant neoplasm of brain; R71.8 Other abnormality of red blood cells; R53.82 Chronic fatigue, unspecified; M35.3 Polymyalgia rheumatica
CPT/HCPCS: 36415; 80053; 85652

== ENCOUNTER → 2024-12-05 16:20 | Outpatient (REF) | payer MEDICARE, OTHER, SELFPAY ==
[2024-12-05 15:03] LABS: Hematocrit 37.2 % (39.0-52.0); Hemoglobin 12.2 g/dL (13.0-18.0); Mean Corp Hgb Conc. 32.8 g/dL (33.0-37.0); Mean Corpuscular Volume 84.0 fL (80.0-94.0); Platelet Count 111 10^3/uL (130-400); Red Cell Dist. Width 12.9 % (11.5-14.5)
== END ==
LOC: OIDL 16:20
PROVIDERS: ATTENDING PHYSICIAN Nurse Practitioner Primary Care
DX: C34.31 Malignant neoplasm of lower lobe, right bronchus or lung (principal); C79.51 Secondary malignant neoplasm of bone; C79.31 Secondary malignant neoplasm of brain; R71.8 Other abnormality of red blood cells; R53.82 Chronic fatigue, unspecified; M35.3 Polymyalgia rheumatica
CPT/HCPCS: 84443; 85025

== ENCOUNTER → 2024-12-27 09:08 | Outpatient (REF) | payer MEDICARE, OTHER, SELFPAY ==
[2024-12-27 10:20] LABS: Hematocrit 37.8 % (39.0-52.0); Hemoglobin 12.1 g/dL (13.0-18.0); Mean Corp Hgb Conc. 32.0 g/dL (33.0-37.0); Mean Corpuscular Volume 82.9 fL (80.0-94.0); Nucleated Red Blood Cells % 0 % (-); Platelet Count 116 10^3/uL (130-400); Red Cell Dist. Width 13.4 % (11.5-14.5)
[2024-12-27 10:56] LABS: ALT (SGPT) 42 U/L (0-50); AST (SGOT) 23 U/L (17-59); Albumin 3.9 g/dl (3.5-5.0); Alkaline Phosphatase 78 U/L (38-126); Blood Urea Nitrogen 13 mg/dl (9-20); Calcium 9.6 mg/dl (8.4-10.2); Carbon Dioxide 28 mmol/L (22-30); Chloride 107 mmol/L (98-107); Glucose 91 mg/dl (70-99); Potassium 3.9 mmol/L (3.5-5.1); Sodium 141 mmol/L (135-145); Total Protein 6.0 g/dl (6.3-8.2); eGFR > 60.00
[2024-12-27 11:01] LABS: C-Reactive Protein < 5.00 mg/L (0.0-10.00)
== END ==
LOC: REG 09:08
PROVIDERS: ATTENDING PHYSICIAN Internal Medicine Rheumatology; FAMILY PHYSICIAN Family Medicine
DX: M35.3 Polymyalgia rheumatica (principal)
CPT/HCPCS: 36415; 80053; 85025; 85652; 86140

== ENCOUNTER → 2024-12-30 10:07 | Outpatient (REF) | payer MEDICARE, OTHER, SELFPAY | LOC: MRI 3T 10:07 | PROVIDERS: ATTENDING PHYSICIAN Radiology Radiation Oncology; FAMILY PHYSICIAN Family Medicine | DX: C34.90 Malignant neoplasm of unspecified part of unspecified bronchus or lung (principal) | CPT/HCPCS: 70553; A9575 ==

== ENCOUNTER → 2025-01-02 07:52 | Outpatient (REF) | payer MEDICARE, OTHER, SELFPAY ==
[2025-01-02 07:09] LABS: Glucose 92 mg/dl (70-99)
== END ==
LOC: PET 07:52
PROVIDERS: ATTENDING PHYSICIAN Nurse Practitioner Primary Care; REFERRING PHYSICIAN Internal Medicine Hematology & Oncology
DX: C34.31 Malignant neoplasm of lower lobe, right bronchus or lung (principal); R53.82 Chronic fatigue, unspecified
CPT/HCPCS: 36415; 82947

== ENCOUNTER → 2025-01-14 09:12 | Outpatient (REF) | payer MEDICARE, OTHER, SELFPAY ==
[2025-01-14 10:45] LABS: Hematocrit 37.9 % (39.0-52.0); Hemoglobin 12.4 g/dL (13.0-18.0); Mean Corp Hgb Conc. 32.7 g/dL (33.0-37.0); Mean Corpuscular Volume 83.8 fL (80.0-94.0); Nucleated Red Blood Cells % 0 % (-); Platelet Count 113 10^3/uL (130-400); Red Cell Dist. Width 13.6 % (11.5-14.5)
[2025-01-14 11:08] LABS: ALT (SGPT) 28 U/L (0-50); AST (SGOT) 16 U/L (17-59); Albumin 4.0 g/dl (3.5-5.0); Alkaline Phosphatase 75 U/L (38-126); Blood Urea Nitrogen 15 mg/dl (9-20); Calcium 9.1 mg/dl (8.4-10.2); Carbon Dioxide 27 mmol/L (22-30); Chloride 107 mmol/L (98-107); Glucose 91 mg/dl (70-99); Potassium 4.0 mmol/L (3.5-5.1); Sodium 140 mmol/L (135-145); Total Protein 6.2 g/dl (6.3-8.2); eGFR > 60.00
== END ==
LOC: REG 09:12
PROVIDERS: ATTENDING PHYSICIAN Internal Medicine Hematology & Oncology; FAMILY PHYSICIAN Family Medicine
DX: C34.31 Malignant neoplasm of lower lobe, right bronchus or lung (principal); C79.51 Secondary malignant neoplasm of bone; C79.31 Secondary malignant neoplasm of brain; R71.8 Other abnormality of red blood cells; R53.82 Chronic fatigue, unspecified; M35.3 Polymyalgia rheumatica
CPT/HCPCS: 36415; 80053; 84443; 85025

== ENCOUNTER → 2025-01-21 09:06 | Outpatient (REF) | payer MEDICARE, OTHER, SELFPAY | LOC: EMG 09:06 | PROVIDERS: ATTENDING PHYSICIAN Pain Medicine Interventional Pain Medicine | DX: M54.16 Radiculopathy, lumbar region (principal); R20.0 Anesthesia of skin | CPT/HCPCS: 95886; 95911 ==

== ENCOUNTER → 2025-02-25 09:24 | Outpatient (REF) | payer MEDICARE, OTHER, SELFPAY ==
[2025-02-25 10:22] LABS: Hematocrit 38.2 % (39.0-52.0); Hemoglobin 12.5 g/dL (13.0-18.0); Mean Corp Hgb Conc. 32.7 g/dL (33.0-37.0); Mean Corpuscular Volume 82.5 fL (80.0-94.0); Nucleated Red Blood Cells % 0 % (-); Platelet Count 124 10^3/uL (130-400); Red Cell Dist. Width 14.7 % (11.5-14.5)
[2025-02-25 11:09] LABS: ALT (SGPT) 24 U/L (0-50); AST (SGOT) 17 U/L (17-59); Albumin 4.1 g/dl (3.5-5.0); Alkaline Phosphatase 83 U/L (38-126); Blood Urea Nitrogen 19 mg/dl (9-20); Calcium 9.3 mg/dl (8.4-10.2); Carbon Dioxide 25 mmol/L (22-30); Chloride 108 mmol/L (98-107); Glucose 90 mg/dl (70-99); Potassium 3.9 mmol/L (3.5-5.1); Sodium 140 mmol/L (135-145); Total Protein 6.2 g/dl (6.3-8.2); eGFR > 60.00
[2025-02-25 11:42] LABS: TSH 2.56 uIU/ml (0.47-4.68)
== END ==
LOC: REG 09:24
PROVIDERS: ATTENDING PHYSICIAN Internal Medicine Hematology & Oncology; FAMILY PHYSICIAN Family Medicine
DX: C34.31 Malignant neoplasm of lower lobe, right bronchus or lung (principal); C79.51 Secondary malignant neoplasm of bone; C79.31 Secondary malignant neoplasm of brain; R71.8 Other abnormality of red blood cells; R53.82 Chronic fatigue, unspecified; M35.3 Polymyalgia rheumatica
CPT/HCPCS: 36415; 80053; 84443; 85025

== ENCOUNTER 2025-02-27 14:14 | Outpatient (RCR) | payer MEDICARE, OTHER, SELFPAY ==
[2025-02-27 14:45] LABS: Hematocrit 41.2 % (39.0-52.0); Hemoglobin 13.4 g/dL (13.0-18.0); Mean Corp Hgb Conc. 32.5 g/dL (33.0-37.0); Mean Corpuscular Volume 85.1 fL (80.0-94.0); Platelet Count 123 10^3/uL (130-400); Red Cell Dist. Width 14.7 % (11.5-14.5)
[2025-02-27 15:55] LABS: ALT (SGPT) 27 U/L (0-50); AST (SGOT) 19 U/L (17-59); Albumin 4.4 g/dl (3.5-5.0); Alkaline Phosphatase 89 U/L (38-126); Blood Urea Nitrogen 16 mg/dl (9-20); Calcium 9.5 mg/dl (8.4-10.2); Carbon Dioxide 29 mmol/L (22-30); Chloride 104 mmol/L (98-107); Glucose 128 mg/dl (70-99); Potassium 4.6 mmol/L (3.5-5.1); Sodium 140 mmol/L (135-145); Total Protein 6.7 g/dl (6.3-8.2); eGFR > 60.00
[2025-03-02 16:51] LABS: HCG Male/Tumor Marker 1 IU/L (0-3)
== END 2025-03-16 23:59 | disposition home or self-care (01) ==
LOC: OID 14:14
PROVIDERS: ATTENDING PHYSICIAN Internal Medicine Hematology & Oncology; FAMILY PHYSICIAN Family Medicine
DX: C34.31 Malignant neoplasm of lower lobe, right bronchus or lung (principal); C79.51 Secondary malignant neoplasm of bone; C79.31 Secondary malignant neoplasm of brain; M35.3 Polymyalgia rheumatica; R53.82 Chronic fatigue, unspecified
CPT/HCPCS: 36415; 80053; 82670; 83002; 84146; 84403; 84443; 84702; 85025

== ENCOUNTER → 2025-03-11 10:02 | Outpatient (REF) | payer MEDICARE, OTHER, SELFPAY | LOC: WDC 10:02 | PROVIDERS: ATTENDING PHYSICIAN Internal Medicine Hematology & Oncology; FAMILY PHYSICIAN Family Medicine | DX: N64.4 Mastodynia (principal) | CPT/HCPCS: 76642; 77062; 77066 ==

== ENCOUNTER → 2025-03-21 09:18 | Outpatient (REF) | payer MEDICARE, OTHER, SELFPAY ==
[2025-03-21 10:55] LABS: Uric Acid 3.3 mg/dl (3.5-8.5)
[2025-03-21 11:31] LABS: Vitamin D, 25-OH*** 22.5 ng/mL (30-80)
[2025-03-21 11:57] LABS: Folate > 20.0 ng/ml (2.76-20); Vitamin B12 970 pg/ml (239-931)
[2025-03-21 13:43] LABS: Syphilis/T. pallidum Ab Reflex Negative (Negative)
[2025-03-21 15:49] LABS: Hepatitis B Surface Antigen Negative (Negative)
[2025-03-21 17:12] LABS: Hepatitis C Antibody Negative (Negative)
[2025-03-23 18:18] LABS: Arsenic, Blood <10.0 ug/L (<=12.0); Lead - Venous <2.0 ug/dL (<=3.4); Mercury, Blood 5.0 ug/L (<=10.0)
== END ==
LOC: REG 09:18
PROVIDERS: ATTENDING PHYSICIAN Psychiatry & Neurology Neurology; FAMILY PHYSICIAN Family Medicine
DX: G62.9 Polyneuropathy, unspecified (principal); D51.9 Vitamin B12 deficiency anemia, unspecified; E53.1 Pyridoxine deficiency; E55.9 Vitamin D deficiency, unspecified
CPT/HCPCS: 36415; 82085; 82164; 82175; 82180; 82306; 82550; 82607; 82746; 83655; 83825; 83921; 84207; 84446; 84550; 86255; 86618; 86704; 86706; 86780; 86803; 87340; 87389

== ENCOUNTER → 2025-04-07 09:32 | Outpatient (REF) | payer MEDICARE, OTHER, SELFPAY ==
[2025-04-07 10:59] LABS: Hematocrit 36.1 % (39.0-52.0); Hemoglobin 11.8 g/dL (13.0-18.0); Mean Corp Hgb Conc. 32.7 g/dL (33.0-37.0); Mean Corpuscular Volume 83.8 fL (80.0-94.0); Nucleated Red Blood Cells % 0 % (-); Platelet Count 116 10^3/uL (130-400); Red Cell Dist. Width 13.7 % (11.5-14.5)
[2025-04-07 12:41] LABS: ALT (SGPT) 34 U/L (0-50); AST (SGOT) 22 U/L (17-59); Albumin 3.9 g/dl (3.5-5.0); Alkaline Phosphatase 96 U/L (38-126); Blood Urea Nitrogen 17 mg/dl (9-20); Calcium 9.0 mg/dl (8.4-10.2); Carbon Dioxide 26 mmol/L (22-30); Chloride 104 mmol/L (98-107); Glucose 84 mg/dl (70-99); Potassium 3.9 mmol/L (3.5-5.1); Sodium 138 mmol/L (135-145); Total Protein 6.2 g/dl (6.3-8.2); eGFR > 60.00
[2025-04-07 13:07] LABS: TSH 2.70 uIU/ml (0.47-4.68)
== END ==
LOC: REG 09:32
PROVIDERS: ATTENDING PHYSICIAN Internal Medicine Hematology & Oncology; FAMILY PHYSICIAN Family Medicine
DX: C34.31 Malignant neoplasm of lower lobe, right bronchus or lung (principal); C79.51 Secondary malignant neoplasm of bone; C79.31 Secondary malignant neoplasm of brain; R71.8 Other abnormality of red blood cells; R53.82 Chronic fatigue, unspecified; M35.3 Polymyalgia rheumatica
CPT/HCPCS: 36415; 80053; 84443; 85025